=== PATIENT | female | born 1970 | race Caucasian/White ===

== ENCOUNTER 2016-09-07 13:49 | Emergency (ER) | payer BC ==
[2016-09-07 14:23] VITALS: RESP 18
[2016-09-07] MEDS ORDERED: DICYCLOMINE 10 MG/ML 2 ML AMP IM STA (14:44)
[2016-09-07] MEDS ORDERED: KETOROLAC 30 MG/ML 1 ML VIAL IVP STA (14:44)
[2016-09-07] MEDS ORDERED: SODIUM CHLORIDE 0.9% 1,000 ML IV STA (14:44)
--- NOTE | 2016-09-07 14:48 | ED ---
Abdominal Pain HPI - General Chief Complaint: Abdominal Pain Stated Complaint: left side pain Time Seen by Provider: 09/07/16 14:26 Source: patient, RN notes reviewed, old records reviewed Mode of arrival: ambulatory Limitations: no limitations - History of Present Illness Initial Comments: 45-year-old [employer] chief complaint of acute onset of left lower quadrant abdominal pain and discomfort for the past 8 hours. Patient reports that it started out a small hurting pain however analysis seemed to spread over more of her abdomen. She reports that she's had no nausea or vomiting. She reports she did have normal bowel movement today. Patient states that she is currently on her menstrual cycle and originally thought this was related to cramps. She reports that she took a Midol with very little relief of pain. Patient states that she has no surgical history besides tubal ligation and breast augmentation. Patient denies any recent fever, chills, shortness of breath, chest pain, back pain, abdominal pain, nausea vomiting, numbness or tingling, dysuria or hematuria, constipation or diarrhea, headaches or visual changes, or any other current symptoms - Related Data Previous Rx's Medication Instructions Recorded Ciprofloxacin HCl [Cipro] 500 mg PO Q12HR #14 tablet 09/07/16 HYDROcodone/APAP 10-325MG [[place] 1 tab PO Q6H PRN #20 tab 09/07/16 10-325] Ketorolac [Toradol] 10 mg PO Q6HR #20 tab 09/07/16 Ondansetron Odt [Zofran Odt] 4 mg PO Q8HR PRN #12 tab 09/07/16 Tamsulosin [Flomax] 0.4 mg PO DAILY #10 cap 09/07/16 Allergies Allergy/AdvReac Type Severity Reaction Status Date / Time No Known Allergies Allergy Verified 09/07/16 14:49 Review of Systems ROS Statement: Those systems with pertinent positive or pertinent negative responses have been documented in the HPI. ROS Other: All systems not noted in ROS Statement are negative. Past Medical History Past Medical History: No Reported History History of Any Multi-Drug Resistant Organisms: None Reported Additional Past Surgical History / Comment(s): breast augmentation Past Psychological History: No Psychological Hx Reported Smoking Status: Current every day smoker Past Alcohol Use History: None Reported Past Drug Use History: None Reported General Exam Limitations: no limitations General appearance: alert, in no apparent distress Head exam: Present: atraumatic, normocephalic, normal inspection Eye exam: Present: normal appearance, PERRL, EOMI. Absent: scleral icterus, conjunctival injection, periorbital swelling ENT exam: Present: normal exam, mucous membranes moist Neck exam: Present: normal inspection. Absent: tenderness, meningismus, lymphadenopathy Respiratory exam: Present: normal lung sounds bilaterally. Absent: respiratory distress, wheezes, rales, rhonchi, stridor Cardiovascular Exam: Present: regular rate, normal rhythm, normal heart sounds. Absent: systolic murmur, diastolic murmur, rubs, gallop, clicks GI/Abdominal exam: Present: soft, tenderness (llq tenderness), normal bowel sounds. Absent: distended, guarding, rebound, rigid Extremities exam: Present: normal inspection, full ROM, normal capillary refill. Absent: tenderness, pedal edema, joint swelling, calf tenderness Back exam: Present: normal inspection Neurological exam: Present: alert, oriented X3, CN II-XII intact Psychiatric exam: Present: normal affect, normal mood Skin exam: Present: warm, dry, intact, normal color. Absent: rash Course Vital Signs 09/07/16 09/07/16 09/07/16 14:20 14:57 16:02 Temperature 98.2 F 97.4 F L 97.8 F Pulse Rate 81 72 88 Respiratory 18 18 18 Rate Blood Pressure 158/82 149/84 152/83 O2 Sat by Pulse 100 100 99 Oximetry Medical Decision Making - Medical Decision Making 45-year-old [employer] chief complaint of acute onset of left lower quadrant abdominal pain and discomfort for the past 8 hours. Patient reports that it started out a small hurting pain however analysis seemed to spread over more of her abdomen. She reports that she's had no nausea or vomiting. She reports she did have normal bowel movement today. Patient states that she is currently on her menstrual cycle and originally thought this was related to cramps. She reports that she took a Midol with very little relief of pain. Patient's lab work was reviewed and did have significant blood in the urine. Patient is currently on her menstrual cycle. Patient did have elevated leukocytosis. KUB x-ray was negative for any acute process. Patient CAT scan abdomen and pelvis showed evidence of left hydronephrosis with hydroureter. Also evidence of significant pre-portal edema around the hepatic system. Patient finding could be consistent with lymphatic changes or hepatitis. Patient's lab work was reviewed and negative for any other abnormal process including liver enzymes her kidney function. Patient will be discharged at this time with Toradol, Zofran, and [place], Flomax and antibiotic. Patient agrees to treatment plan will comply. We'll give a referral to primary care provider regards to the hepatic finding as well as urology for a kidney stone. - Lab Data Result diagrams: 09/07/16 14:50 09/07/16 14:50 Lab Results 09/07/16 09/07/16 09/07/16 Range/Units 14:50 14:50 14:50 WBC 13.9 H (3.8-10.6) k/uL RBC 4.15 (3.80-5.40) m/uL Hgb 13.7 (11.4-16.0) gm/dL Hct 40.3 (34.0-46.0) % MCV 97.2 (80.0-100.0) fL MCH 33.0 (25.0-35.0) pg MCHC 34.0 (31.0-37.0) g/dL RDW 12.3 (11.5-15.5) % Plt Count 295 (150-450) k/uL Neutrophils % 78 % Lymphocytes % 14 % Monocytes % 6 % Eosinophils % 1 % Basophils % 0 % Neutrophils # 10.9 H (1.3-7.7) k/uL Lymphocytes # 1.9 (1.0-4.8) k/uL Monocytes # 0.8 (0-1.0) k/uL Eosinophils # 0.1 (0-0.7) k/uL Basophils # 0.1 (0-0.2) k/uL Sodium 139 (137-145) mmol/L Potassium 4.2 (3.5-5.1) mmol/L Chloride 109 H (98-107) mmol/L Carbon Dioxide 22 (22-30) mmol/L Anion Gap 8 mmol/L BUN 13 (7-17) mg/dL Creatinine 1.00 (0.52-1.04) mg/dL Est GFR (MDRD) Af Amer >60 (>60 ml/min/1.73 sqM) Est GFR (MDRD) Non-Af >60 (>60 ml/min/1.73 sqM) Glucose 84 (74-99) mg/dL Calcium 10.0 (8.4-10.2) mg/dL Total Bilirubin 0.5 (0.2-1.3) mg/dL AST 38 H (14-36) U/L ALT 44 (9-52) U/L Alkaline Phosphatase 74 (38-126) U/L Total Protein 6.9 (6.3-8.2) g/dL Albumin 4.4 (3.5-5.0) g/dL Amylase 42 (30-110) U/L Lipase 46 (23-300) U/L Urine Color Red Urine Appearance Cloudy H (Clear) Urine pH 5.5 (5.0-8.0) Ur Specific [place] 1.031 (1.001-1.035) Urine Protein 2+ H (Negative) Urine Glucose (UA) Negative (Negative) Urine Ketones Trace H (Negative) Urine Blood Large H (Negative) Urine Nitrite Negative (Negative) Urine Bilirubin Negative (Negative) Urine Urobilinogen 4.0 (<2.0) mg/dL Ur Leukocyte Esterase Trace H (Negative) Urine RBC >182 H (0-5) /hpf Urine WBC 15 H (0-5) /hpf Ur Squamous Epith Cells 5 H (0-4) /hpf Calcium Oxalate Crystal Few H (None) /hpf Urine Mucus Many H (None) /hpf - Radiology Data Radiology results: report reviewed Left-sided hydronephrosis and hydroureter with probably a 5 mm obstructing stone in the left ureter. Mild free fluid in the cul-de-sac. There is diffuse. Portable edema throughout the liver that is nonspecific but can be associated with hepatitis or obstructive lymphatics. I see no sign of congestive heart failure. There is subsegmental atelectasis in the lung bases. Disposition Clinical Impression: Left ureteral stone, Disorder of hepatic portal vein Disposition: HOME SELF-CARE Condition: Good Instructions: Ureteral Stones (ED) Additional Instructions: Patient is to take all medications as prescribed. Follow-up out patiently with primary care provider regards to hepatic finding. Take medications as directed. Return to the emergency department if any alarming signs or symptoms occur. Also recommending following up with urologist regards to the ureteral stone. Prescriptions: Ciprofloxacin HCl [Cipro] 500 mg PO Q12HR #14 tablet HYDROcodone/APAP 10-325MG [[place] 10-325] 1 tab PO Q6H PRN #20 tab PRN Reason: Pain Ketorolac [Toradol] 10 mg PO Q6HR #20 tab Ondansetron Odt [Zofran Odt] 4 mg PO Q8HR PRN #12 tab PRN Reason: Nausea Tamsulosin [Flomax] 0.4 mg PO DAILY #10 cap Referrals: Iván Chapman MD [STAFF PHYSICIAN] - 1-2 days Naren Cleveland MD [STAFF PHYSICIAN] - 1-2 days Time of Disposition: 17:35
--- NOTE | 2016-09-07 15:15 | XR ---
EXAMINATION TYPE: XR KUB DATE OF EXAM: 09/07/2016 COMPARISON: NONE HISTORY: Left flank pain TECHNIQUE: One view abdominal series FINDINGS: The osseous structures are intact. The bowel gas pattern is nonspecific. Lung bases are clear. 2 mm calcification overlying the sacrum. IMPRESSION: 1. Nonspecific abdomen. There is a 2 mm nonspecific calcification overlying the sacrum. Correlate wi th noncontrast CT if there is concern for ureteral calculus.
[2016-09-07 15:17] LABS: Basophils # (A) 0.1 k/uL (0-0.2); Basophils % (A) 0 %; CH 32.5; CHCM 33.6; Eosinophils # (A) 0.1 k/uL (0-0.7); Eosinophils % (A) 1 %; HCT 40.3 % (34.0-46.0); HGB 13.7 gm/dL (11.4-16.0); Luc # (Auto) 0.13; Luc % (Auto) 1; Lymphocytes # (A) 1.9 k/uL (1.0-4.8); Lymphocytes % (A) 14 %; MCV 97.2 fL (80.0-100.0); Mean Platelet Volume 7.2; Monocytes # (A) 0.8 k/uL (0-1.0); Monocytes % (A) 6 %; Neutrophils # (A) 10.9 k/uL (1.3-7.7); Neutrophils % (A) 78 %; RBC 4.15 m/uL (3.80-5.40); RDW 12.3 % (11.5-15.5); WBC 13.9 k/uL (3.8-10.6); WBC (Perox) 14.56
[2016-09-07 15:22] LABS: Appearance,Urine Cloudy (Clear); Bilirubin,Urine Negative (Negative); Calcium Oxalate Crystals,Urine Few /hpf; Glucose,Urine (UA) Negative (Negative); Ketones,Urine Trace (Negative); Leukocyte Esterase,Urine Trace (Negative); Mucus,Urine Many /hpf; Nitrite,Urine Negative (Negative); PH, Urine 5.5 (5.0-8.0); Particle Count 13918; Protein,Urine 2+ (Negative); RBC,Urine >182 /hpf (0-5); Specific Gravity,Urine 1.031 (1.001-1.035); Squamous Epithelial Cell,Urine 5 /hpf (0-4); UA Billing (MACRO vs. MICRO) MICRO; WBC,Urine 15 /hpf (0-5)
[2016-09-07 15:26] LABS: ALT 44 U/L (9-52); AST 38 U/L (14-36); Alkaline Phosphatase 74 U/L (38-126); Amylase 42 U/L (30-110); Anion Gap 8 mmol/L; Blood Urea Nitrogen 13 mg/dL (7-17); Carbon Dioxide 22 mmol/L (22-30); Chloride 109 mmol/L (98-107); Glucose 84 mg/dL (74-99); Non-African American GFR(MDRD) >60 (>60 ml/min/1.73 sqM); Potassium 4.2 mmol/L (3.5-5.1); Sodium 139 mmol/L (137-145); Total Bilirubin 0.5 mg/dL (0.2-1.3); Total Protein 6.9 g/dL (6.3-8.2)
[2016-09-07] MEDS ORDERED: RX INFO: IV CONTRAST WAS GIVEN 1 EACH MISC MISCELLANE PRN (15:46)
[2016-09-07] MEDS ORDERED: HYDROmorphone 1 MG/ML 1 ML SYRINGE IVP STA (15:50)
[2016-09-07] MEDS ORDERED: ONDANSETRON 4 MG/2 ML VIAL IVP STA (15:50)
[2016-09-07 16:02] VITALS: TEMP 97.8
--- NOTE | 2016-09-07 16:43 | CT ---
EXAMINATION TYPE: CT abdomen pelvis w con DATE OF EXAM: 09/07/2016 COMPARISON: NONE HISTORY: Abdominal pain CT DLP: mGycm Automated exposure control for dose reduction was used. TECHNIQUE: Helical acquisition of images was performed from the lung bases through the pelvis. CONTRAST: Omnipaque 100 mL. FINDINGS: There is mild linear density at the posterior lung bases. There is no pleural effusion. There is periportal edema throughout the liver. Bile ducts are not dilated. Gallbladder has normal si ze. There is no sign of a pancreatic mass. Spleen appears normal. There is no adrenal mass. There is mild left-sided hydronephrosis. The delayed images show no contras t in the left renal collecting system. There is mild enlargement of the left kidney. Right kidney jose roberto ws normal contrast opacification and contrast excretion. Bilateral breast implants are noted. Bony st ructures are intact. There is no retroperitoneal adenopathy. There is no ascites or free air. There is a small amount of f ree fluid in the pelvis. The bony structures are intact. Uterus is anteverted. I see no pelvic mass. Appendix is not definitely seen. There is no sign of appendicitis. I see no intestinal wall thickenin g. There is no sign of bowel obstruction. There is probably a 5 mm calculus in the distal left ureter . There is left-sided hydroureter. IMPRESSION: THERE IS LEFT-SIDED HYDRONEPHROSIS AND HYDROURETER WITH PROBABLY A 5 MM OBSTRUCTING STONE IN THE DIST AL LEFT URETER. MILD FREE FLUID IN THE CUL-DE-SAC. THERE IS DIFFUSE PERIPORTAL EDEMA THROUGHOUT THE LIVER THAT IS NONSPECIFIC BUT CAN BE ASSOCIATED WITH HEPATITIS OR OBSTRUCTED LYMPHATICS.. I SEE NO SIGN OF CONGESTIVE HEART FAILURE. THERE IS MILD SUBSEG MENTAL ATELECTASIS AT THE LUNG BASES.
[2016-09-07 17:58] VITALS: BP 114/73; PULSE 70
== END 2016-09-07 17:58 | disposition home or self-care (01) ==
LOC: EC 13:49
DX: N20.1 Calculus of ureter (principal); K76.9 Liver disease, unspecified; F17.200 Nicotine dependence, unspecified, uncomplicated
CPT/HCPCS: 36415; 80053; 82150; 83690; 85025; 81001; 74000; 74177; 99285; 96372; 96374; 96375 ×2; 96361; J0500; J2405; J1885; J1170; Q9967

== ENCOUNTER 2024-08-26 06:51 | Inpatient (IN) | payer BC ==
--- NOTE | 2024-08-26 07:42 | ED ---
General Adult HPI - General Chief complaint: Overdose Stated complaint: Possible overdose Time Seen by Provider: 08/26/24 07:13 Source: patient Mode of arrival: EMS Limitations: no limitations - History of Present Illness Initial comments: Dictation was produced using [employer] dictation software. please excuse any grammatical, word or spelling errors. Chief Complaint: 53-year-old depressed female presents with suicidal behavior History of Present Illness: Patient 53-year-old female has been depressed about her life. States she drank half a pint of liquor. She intended on holding on medications. Patient provides vague history where she thinks she took maybe 6-8 Motrin pills and some other pills that she is not sure of. She states that the time of ingestion was 5:30 AM. EMS wanted to bring patient to the ER states that patient took 50 mg of Toradol. Patient denies any physical complaints. The ROS documented in this emergency department record has been reviewed and confirmed by me. Those systems with pertinent positive or negative responses have been documented in the HPI. All other systems are other negative and/or noncontributory. - Related Data Previous Rx's Medication Instructions Recorded Ciprofloxacin HCl [Cipro] 500 mg PO Q12HR #14 tablet 09/07/16 HYDROcodone/APAP 10-325MG [[place] 1 tab PO Q6H PRN #20 tab 09/07/16 10-325] Ketorolac [Toradol] 10 mg PO Q6HR #20 tab 09/07/16 Ondansetron Odt [Zofran Odt] 4 mg PO Q8HR PRN #12 tab 09/07/16 Tamsulosin [Flomax] 0.4 mg PO DAILY #10 cap 09/07/16 Allergies Allergy/AdvReac Type Severity Reaction Status Date / Time No Known Allergies Allergy Verified 08/26/24 07:35 Review of Systems ROS Statement: Those systems with pertinent positive or pertinent negative responses have been documented in the HPI. ROS Other: All systems not noted in ROS Statement are negative. Past Medical History Past Medical History: No Reported History History of Any Multi-Drug Resistant Organisms: None Reported Additional Past Surgical History / Comment(s): breast augmentation Past Psychological History: No Psychological Hx Reported Past Alcohol Use History: None Reported Past Drug Use History: None Reported General Exam - General Exam Comments Initial Comments: PHYSICAL EXAM: General Impression: Alert and oriented x3, not in acute distress HEENT: Normocephalic atraumatic, extra-ocular movements intact, pupils equal and reactive to light bilaterally, mucous membranes moist. Cardiovascular: Heart regular rate and rhythm Chest: Able to complete full sentences, no retractions, no tachypnea Abdomen: abdomen soft, non-tender, non-distended, no organomegaly Musculoskeletal: Pulses present and equal in all extremities, no peripheral edema Motor: no focal deficits noted Neurological: CN II-XII grossly intact, no focal motor or sensory deficits noted Skin: Intact with no visualized rashes Psych: Normal affect and mood Limitations: no limitations Course Vital Signs 08/26/24 08/26/24 07:28 07:46 Temperature 97.8 F 97.8 F Pulse Rate 77 62 Respiratory 17 16 Rate Blood Pressure 114/76 96/60 O2 Sat by Pulse 97 96 Oximetry EKG Findings - EKG Comments: EKG Findings:: My EKG interpretation: Ventricular rate 66, sinus rhythm, [place] interval 159, cures 91, QTc 378. No [place] prolongation, no QTC prolongation, no ST or T-wave changes noted. Overall, this EKG is unremarkable Medical Decision Making - Medical Decision Making Was pt. sent in by a medical professional or institution (, PA, ALUMINA REFINERY OPERATOR, urgent care, hospital, or long-term...) When possible be specific @ -No Did you speak to anyone other than the patient for history (EMS, parent, family, police, friend...)? What history was obtained from this source @ -No Did you review nursing and triage notes (agree or disagree)? Why? @ -I reviewed and agree with nursing and triage notes Were old charts reviewed (outside hosp., previous admission, EMS record, old EKG, old radiological studies, urgent care reports/EKG's, long-term records)? Report findings @ -No old charts were reviewed Differential Diagnosis (chest pain, altered mental status, abdominal pain women, abdominal pain men, vaginal bleeding, musculoskeletal, weakness, fever, dyspnea, syncope, headache, dizziness, GI bleed, back pain, seizure, CVA, palpatations, mental health)? @ -Differential Mental Health: Depression, anxiety, bipolar, psychosis, schizophrenia, borderline personality, situational depression, adjustment disorder, behavioral disorder, brain tumor, malingering, substance abuse, encephalopathy, medication reaction, dementia, hypothyroidism, degenerative neurologic disorder, lupus.... This is not meant to be all-inclusive list EKG interpreted by me (3pts min.). @ -See above X-rays interpreted by me (1pt min.). @ -None done CT interpreted by me (1pt min.). @ -None done U/S interpreted by me (1pt. min.). @ -None done What testing was considered but not performed or refused? (CT, X-rays, U/S, labs)? Why? @ -None What meds were considered but not given or refused? Why? @ -None Was smoking cessation discussed for >3mins.? @ -No Were there social determinants of health that impacted care today? How? (Ho melessness, low income, unemployed, alcoholism, drug addiction, transportation, low edu. Level, literacy, decrease access to med. care, retirement, rehab)? @ -No Was there de-escalation of care discussed even if they declined (Discuss DNR or withdrawal of care, Hospice)? DNR status @ -No What co-morbidities impacted this encounter? (DM, HTN, Smoking, COPD, CAD, Cancer, CVA, ARF, Chemo, Hep., AIDS, mental health diagnosis, sleep apnea, morbid obesity)? @ -None Was patient admitted / discharged? Hospital course, mention meds given and route, prescriptions, significant lab abnormalities, going to OR and other pertinent info. @ -53-year-old female presents with depression, suicidal behavior. States that she overdosed on some NSAIDs along with alcohol. Vital signs stable. Did you discuss the management of the patient with other professionals (professionals i.e. , PA, ALUMINA REFINERY OPERATOR, lab, RT, psych nurse, social media project manager, olericulture teacher, teacher, state wildlife officer, cyanide case hardener)? Give summary @ -Patient evaluated by EPS will be admitted to inpatient psych Was critical care preformed (if so, how long)? @ -No Undiagnosed new problem with uncertain prognosis? @ -No Drug Therapy requiring intensive monitoring for toxicity (Heparin, Nitro, Insulin, Cardizem)? @ -No Were any procedures done? @ -No Diagnosis/symptom? Acute, or Chronic, or Acute on Chronic? Uncomplicated (without systemic symptoms) or Complicated (systemic symptoms)? @ -Suicidal attempt Side effects of treatment? @ -No Exacerbation, Progression, or Severe Exacerbation? @ -No Poses a threat to life or bodily function? How? (Chest pain, [place], [place], pneumonia, PE, COPD, DKA, ARF, appy, cholecystitis, CVA, Diverticulitis, Homicidal, [place] icidal, threat to staff... and all critical care pts) @ -yes - Lab Data Result diagrams: 08/26/24 08:06 08/26/24 08:06 Lab Results 08/26/24 08/26/24 08/26/24 Range/Units 06:58 06:58 08:06 WBC 9.48 (4.50-10.00) 10*3/uL RBC 4.50 (4.10-5.20) 10*6/uL Hgb 15.3 H (12.0-15.0) g/dL Hct 43.5 (37.2-46.3) % MCV 96.7 (80.0-97.0) fL MCH 34.0 H (27.0-32.0) pg MCHC 35.2 (32.0-37.0) g/dL Plt Count 274 (140-440) 10*3/uL MPV 9.3 L (9.5-12.2) fL Immature Gran % (Auto) 0.3 % Neutrophils % 68.4 % Lymphocytes % 23.8 % Monocytes % 6.5 % Eosinophils % 0.4 % Basophils % 0.6 % Immature Gran # 0.03 (0.00-0.04) 10*3/uL Neutrophils # 6.47 (1.80-7.70) 10*3/uL Lymphocytes # 2.26 (0.90-5.00) 10*3/uL Monocytes # 0.62 (0.20-1.00) 10*3/uL Eosinophils # 0.04 (0.04-0.35) 10*3/uL Basophils # 0.06 (0.00-0.10) 10*3/uL Sodium (137-145) mmol/L Potassium (3.5-5.1) mmol/L Chloride (98-107) mmol/L Carbon Dioxide (22-30) mmol/L Anion Gap mmol/L BUN (7-17) mg/dL Creatinine (0.52-1.04) mg/dL Est GFR (CKD-EPI)AfAm (>60 ml/min/1.73 sqM) Est GFR (CKD-EPI)NonAf (>60 ml/min/1.73 sqM) Glucose (74-99) mg/dL Calcium (8.4-10.2) mg/dL Total Bilirubin (0.2-1.3) mg/dL AST (14-36) U/L ALT (4-34) U/L Alkaline Phosphatase (38-126) U/L Total Protein (6.3-8.2) g/dL Albumin (3.5-5.0) g/dL Urine HCG, Qual Not Detected (Not Detectd) Salicylates mg/dL Urine Opiates Screen Detected H (NotDetected) Ur Oxycodone Screen Not Detected (NotDetected) Urine Methadone Screen Not Detected (NotDetected) Acetaminophen ug/mL Ur Barbiturates Screen Not Detected (NotDetected) U Tricyclic Antidepress Not Detected (NotDetected) Ur Phencyclidine Scrn Not Detected (NotDetected) Ur Amphetamines Screen Not Detected (NotDetected) U Methamphetamines Scrn Not Detected (NotDetected) U Benzodiazepines Scrn Not Detected (NotDetected) Urine Cocaine Screen Not Detected (NotDetected) U Marijuana (THC) Screen Not Detected (NotDetected) Serum Alcohol mg/dL 08/26/24 08/26/24 Range/Units 08:06 09:33 WBC (4.50-10.00) 10*3/uL RBC (4.10-5.20) 10*6/uL Hgb (12.0-15.0) g/dL Hct (37.2-46.3) % MCV (80.0-97.0) fL MCH (27.0-32.0) pg MCHC (32.0-37.0) g/dL Plt Count (140-440) 10*3/uL MPV (9.5-12.2) fL Immature Gran % (Auto) % Neutrophils % % Lymphocytes % % Monocytes % % Eosinophils % % Basophils % % Immature Gran # (0.00-0.04) 10*3/uL Neutrophils # (1.80-7.70) 10*3/uL Lymphocytes # (0.90-5.00) 10*3/uL Monocytes # (0.20-1.00) 10*3/uL Eosinophils # (0.04-0.35) 10*3/uL Basophils # (0.00-0.10) 10*3/uL Sodium 143 (137-145) mmol/L Potassium 3.5 (3.5-5.1) mmol/L Chloride 107 (98-107) mmol/L Carbon Dioxide 25 (22-30) mmol/L Anion Gap 11 mmol/L BUN 10 (7-17) mg/dL Creatinine 0.76 (0.52-1.04) mg/dL Est GFR (CKD-EPI)AfAm >90 (>60 ml/min/1.73 sqM) Est GFR (CKD-EPI)NonAf >90 (>60 ml/min/1.73 sqM) Glucose 89 (74-99) mg/dL Calcium 10.6 H (8.4-10.2) mg/dL Total Bilirubin 0.4 (0.2-1.3) mg/dL AST 20 (14-36) U/L ALT 13 (4-34) U/L Alkaline Phosphatase 75 (38-126) U/L Total Protein 7.3 (6.3-8.2) g/dL Albumin 4.6 (3.5-5.0) g/dL Urine HCG, Qual (Not Detectd) Salicylates <1.0 mg/dL Urine Opiates Screen (NotDetected) Ur Oxycodone Screen (NotDetected) Urine Methadone Screen (NotDetected) Acetaminophen 11.5 <10.0 ug/mL Ur Barbiturates Screen (NotDetected) U Tricyclic Antidepress (NotDetected) Ur Phencyclidine Scrn (NotDetected) Ur Amphetamines Screen (NotDetected) U Methamphetamines Scrn (NotDetected) U Benzodiazepines Scrn (NotDetected) Urine Cocaine Screen (NotDetected) U Marijuana (THC) Screen (NotDetected) Serum Alcohol 41 mg/dL Disposition Clinical Impression: Suicide attempt by multiple drug overdose Disposition: TRANSFER TO PSYCH HOSP/UNIT Condition: Fair Referrals: None,Stated [Primary Care Provider] - 1-2 days
[2024-08-26 08:11] LABS: Basophils # (A) 0.06 10*3/uL (0.00-0.10); Basophils % (A) 0.6 %; Eosinophils # (A) 0.04 10*3/uL (0.04-0.35); Eosinophils % (A) 0.4 %; HCT 43.5 % (37.2-46.3); HGB 15.3 g/dL (12.0-15.0); Lymphocytes # (A) 2.26 10*3/uL (0.90-5.00); Lymphocytes % (A) 23.8 %; MCH 34.0 pg (27.0-32.0); MCHC 35.2 g/dL (32.0-37.0); MCV 96.7 fL (80.0-97.0); Monocytes # (A) 0.62 10*3/uL (0.20-1.00); Monocytes % (A) 6.5 %; Neutrophils # (A) 6.47 10*3/uL (1.80-7.70); Neutrophils % (A) 68.4 %; Platelet Count 274 10*3/uL (140-440); RBC 4.50 10*6/uL (4.10-5.20); RDW 12.8 % (11.5-14.5); WBC 9.48 10*3/uL (4.50-10.00)
[2024-08-26 08:11] LABS: Barbiturate Screen,Urine Not Detected (NotDetected); Benzodiazepines Screen,Urine Not Detected (NotDetected); Opiate Screen,Urine Detected (NotDetected); Oxycodone Screen, Urine Not Detected (NotDetected); Phencyclidine Screen,Urine Not Detected (NotDetected); Tricyclic Antidepressant,Urine Not Detected (NotDetected); Urn Cannabinoid Scrn Not Detected (NotDetected)
[2024-08-26 08:30] LABS: ALT 13 U/L (4-34); AST 20 U/L (14-36); Acetaminophen 11.5 ug/mL; African American GFR (CKD) >90 (>60 ml/min/1.73 sqM); Albumin 4.6 g/dL (3.5-5.0); Alkaline Phosphatase 75 U/L (38-126); Anion Gap 11 mmol/L; Blood Urea Nitrogen 10 mg/dL (7-17); Calcium 10.6 mg/dL (8.4-10.2); Carbon Dioxide 25 mmol/L (22-30); Chloride 107 mmol/L (98-107); Glucose 89 mg/dL (74-99); Non-African American GFR(CKD) >90 (>60 ml/min/1.73 sqM); Potassium 3.5 mmol/L (3.5-5.1); Salicylate <1.0 mg/dL; Sodium 143 mmol/L (137-145); Total Protein 7.3 g/dL (6.3-8.2)
[2024-08-26 13:48] LABS: RSV Not Detected (Not Detectd)
[2024-08-26] MEDS ORDERED: MAG HYDROX/AL HYDROX/SIMETH 355 ML BOTTLE PO PRN (14:42)
[2024-08-26] MEDS ORDERED: IBUPROFEN 600 MG TAB PO PRN (14:42)
[2024-08-26] MEDS ORDERED: ACETAMINOPHEN TAB 325 MG TAB PO PRN (14:42)
[2024-08-26] MEDS ORDERED: LORazepam 1 MG TAB PO PRN ×2 (14:42)
[2024-08-26] MEDS ORDERED: HALOPERIDOL LACTATE 5 MG/ML 1 ML VIAL IM PRN (14:42)
[2024-08-26] MEDS: NICOTINE 21MG/24HR PATCH TRANSDERM SCH (15:57)
[2024-08-27 07:46] LABS: ALT 12 U/L (4-34); AST 19 U/L (14-36); African American GFR (CKD) >90 (>60 ml/min/1.73 sqM); Albumin 4.6 g/dL (3.5-5.0); Alkaline Phosphatase 57 U/L (38-126); Anion Gap 8 mmol/L; Blood Urea Nitrogen 15 mg/dL (7-17); Calcium 10.8 mg/dL (8.4-10.2); Carbon Dioxide 23 mmol/L (22-30); Chloride 107 mmol/L (98-107); Glucose 89 mg/dL (74-99); Non-African American GFR(CKD) 88 (>60 ml/min/1.73 sqM); Potassium 4.4 mmol/L (3.5-5.1); Sodium 138 mmol/L (137-145); Total Protein 7.0 g/dL (6.3-8.2)
--- NOTE | 2024-08-27 08:18 | P.HP ---
Psychiatric H&P - . History & Physical: Allergies Allergy/AdvReac Type Severity Reaction Status Date / Time No Known Allergies Allergy Verified 08/26/24 14:13 Vital Signs Temp 97.5 F L 08/27/24 08:02 Pulse 65 08/27/24 08:02 Resp 16 08/27/24 08:02 BP 112/77 08/27/24 08:02 Pulse Ox 98 08/27/24 08:02 FiO2 Intake & Output 08/26/24 08/27/24 08/27/24 18:59 06:59 18:59 Weight 40.052 kg Laboratory Last Values WBC 9.48 10*3/uL (4.50-10.00) 08/26/24 08:06 RBC 4.50 10*6/uL (4.10-5.20) 08/26/24 08:06 Hgb 15.3 g/dL (12.0-15.0) H 08/26/24 08:06 Hct 43.5 % (37.2-46.3) 08/26/24 08:06 MCV 96.7 fL (80.0-97.0) 08/26/24 08:06 MCH 34.0 pg (27.0-32.0) H 08/26/24 08:06 MCHC 35.2 g/dL (32.0-37.0) 08/26/24 08:06 Plt Count 274 10*3/uL (140-440) 08/26/24 08:06 MPV 9.3 fL (9.5-12.2) L 08/26/24 08:06 Immature Gran % (Auto) 0.3 % 08/26/24 08:06 Neutrophils % 68.4 % 08/26/24 08:06 Lymphocytes % 23.8 % 08/26/24 08:06 Monocytes % 6.5 % 08/26/24 08:06 Eosinophils % 0.4 % 08/26/24 08:06 Basophils % 0.6 % 08/26/24 08:06 Immature Gran # 0.03 10*3/uL (0.00-0.04) 08/26/24 08:06 Neutrophils # 6.47 10*3/uL (1.80-7.70) 08/26/24 08:06 Lymphocytes # 2.26 10*3/uL (0.90-5.00) 08/26/24 08:06 Monocytes # 0.62 10*3/uL (0.20-1.00) 08/26/24 08:06 Eosinophils # 0.04 10*3/uL (0.04-0.35) 08/26/24 08:06 Basophils # 0.06 10*3/uL (0.00-0.10) 08/26/24 08:06 Sodium 138 mmol/L (137-145) 08/27/24 07:02 Potassium 4.4 mmol/L (3.5-5.1) 08/27/24 07:02 Chloride 107 mmol/L (98-107) 08/27/24 07:02 Carbon Dioxide 23 mmol/L (22-30) 08/27/24 07:02 Anion Gap 8 mmol/L 08/27/24 07:02 BUN 15 mg/dL (7-17) 08/27/24 07:02 Creatinine 0.79 mg/dL (0.52-1.04) 08/27/24 07:02 Est GFR (CKD-EPI)AfAm >90 (>60 ml/min/1.73 sqM) 08/27/24 07:02 Est GFR (CKD-EPI)NonAf 88 (>60 ml/min/1.73 sqM) 08/27/24 07:02 Glucose 89 mg/dL (74-99) 08/27/24 07:02 Calcium 10.8 mg/dL (8.4-10.2) H 08/27/24 07:02 Total Bilirubin 0.5 mg/dL (0.2-1.3) 08/27/24 07:02 AST 19 U/L (14-36) 08/27/24 07:02 ALT 12 U/L (4-34) 08/27/24 07:02 Alkaline Phosphatase 57 U/L (38-126) 08/27/24 07:02 Total Protein 7.0 g/dL (6.3-8.2) 08/27/24 07:02 Albumin 4.6 g/dL (3.5-5.0) 08/27/24 07:02 Urine HCG, Qual Not Detected (Not Detectd) 08/26/24 06:58 Salicylates <1.0 mg/dL 08/26/24 08:06 Urine Opiates Screen Detected (NotDetected) H 08/26/24 06:58 Ur Oxycodone Screen Not Detected (NotDetected) 08/26/24 06:58 Urine Methadone Screen Not Detected (NotDetected) 08/26/24 06:58 Acetaminophen <10.0 ug/mL 08/26/24 09:33 Ur Barbiturates Screen Not Detected (NotDetected) 08/26/24 06:58 U Tricyclic Antidepress Not Detected (NotDetected) 08/26/24 06:58 Ur Phencyclidine Scrn Not Detected (NotDetected) 08/26/24 06:58 Ur Amphetamines Screen Not Detected (NotDetected) 08/26/24 06:58 U Methamphetamines Scrn Not Detected (NotDetected) 08/26/24 06:58 U Benzodiazepines Scrn Not Detected (NotDetected) 08/26/24 06:58 Urine Cocaine Screen Not Detected (NotDetected) 08/26/24 06:58 U Marijuana (THC) Screen Not Detected (NotDetected) 08/26/24 06:58 Serum Alcohol 41 mg/dL 08/26/24 08:06 Influenza Type A (PCR) Not Detected (Not Detectd) 08/26/24 13:00 Influenza Type B (PCR) Not Detected (Not Detectd) 08/26/24 13:00 RSV (PCR) Not Detected (Not Detectd) 08/26/24 13:00 SARS-CoV-2 (PCR) Not Detected (Not Detectd) 08/26/24 13:00 08/27/24 08:05 IDENTIFYING DATA: Patient is a 53-year-old female currently living with her HPI: The patient presented to the hospital under CERT stating that she was hearing things and seeing things. While in the hospital she had noted that she had overdosed on medications. Interviewing the patient was limited due to the patient's psychotic presentation and thought blocking. She notes the intent was trying to kill herself. Tox screen was positive for alcohol blood alcohol was 0.041 and UDS was positive for opiates. The patient notes that she had been going through a slump. She notes that she wanted her to put cameras in the house because people were coming in. She notes that her in someway was controlling the content on the television set. She had difficulty explaining this. She notes that she is severely depressed and anxious. She notes that she has been sleeping too much and has no energy, appetite or concentration. She notes that she is scared and has been crying. She notes guilt and shame. She denies any homicidal thoughts and notes that there are firearms in the house and does not know whether they are locked or unlocked. Collateral: Patient gave me permission to speak to her and her son. An attempt was made to call Justin first her son [phone] however unsuccessful. An attempt was made to call her Omid [phone] however unsuccessful. PAST PSYCHIATRIC HISTORY: The patient denied any past mental health issues but notes that she had a similar episode after her sister of seeing things.. Patient denies being on any psychiatric medications. Patient denies any previous psychiatric hospitalizations. Patient denies any psychiatric outpatient follow-up. Patient denies any history of suicide attempts in the past. PMH: as per ER note ALLERGIES: as per EMR CHEMICAL DEPENDENCY HISTORY: as per HPI FAMILY PSYCHIATRIC/SUBSTANCE USE HISTORY: Denies SOCIAL HISTORY: Patient was born and raised in [place] and lives with her . MENTAL STATUS EXAM: General Appearance: Patient appears to be older than her stated age is alert, scared and hesitant. Patient appears to have fair hygiene and grooming. Behavior: Patient is tense and guarded. She Hesitating and Looked at She Was Responding to Internal Stimuli. The patient was tearful during the interview Speech: Patient's speech is nonfluent and nonpressured. Mood/Affect: Patient reports their mood is depressed and scared, affect is congruent and constricted. Suicidality/Homicidality: Patient denies having any homicidal ideation intent or plan. Noted having tried to kill herself she notes that she does not have any suicidal thoughts currently Perceptions: Patient is having visual hallucinations and notes auditory hallucinations Though content/process: Paranoid and thought blocking Memory and concentration: AOX3, grossly intact for the purposes of this session. Judgment and insight: Poor/Poor STRENGTHS/WEAKNESSES: strength is that patient is resilient. Weakness is that patient has poor judgment and is impulsive INTELLECT: Average Diagnosis: Psychosis NOS Assessment: 53-year-old female presenting to the hospital initially for psychotic symptoms however admitted to trying to kill herself with pills and alcohol. The patient's presentation is extremely bizarre with her thought blocking it is difficult to get a good interview. She is definitely having psychosis at this time and she had mentioned a past history of similar stress incidents specifically with her sister dying where she experienced a similar event. Their questions whether the patient has depression with psychotic features. Additionally, we cannot rule out due to not knowing the patient's past history of psychiatric problems possible organic causes including possible stroke. She did relay that she had been through a stressful period as well as her family. Another option is this is late onset schizophrenia. At this point it is felt that the patient is a risk to herself and this is the least restrictive level of care. PLAN: -Patient is admitted under involuntary status to MHU for stabilization of psychiatric symptoms and safety. Patient has not signed adult voluntary form and medication consent and is placed in patient's chart. A second certification was completed and along with petition will be filed for court. -Medications : Start Zyprexa Zydis 5 mg take 1 tablet by mouth twice daily for psychosis -Ativan and Haldol PRN for agitation/aggression -Started thiamine, MVM for etoh use -CIWA protocol with Ativan PRN for ETOH withdrawal. -Patient was informed of the risks, benefits and side effects of the medication and patient verbally consented to taking the medications. Patient signed med consent form and was placed in chart. -Internal Medicine consult to perform medical evaluation and physical. -NRT -nicotine patch -SW on board for discharge planning. Encourage patient to participate in groups to work on coping skills. Will await deferral and court date. 08/27/24 08:07
[2024-08-27] MEDS: OLANZapine ODT 5 MG TAB PO SCH (08:48)
[2024-08-27 12:18] VITALS: BMI 18.4
--- NOTE | 2024-08-28 13:06 | P.PN ---
Progress Note - Text Progress Note Date: 08/28/24 Interval History: Patient was seen in bed and was directable and agreeable to speak with data analyst report writer in the office. Patient reports feeling well however does mention difficulty staying asleep overnight. Patient displayed disorganization in her thoughts, paranoia, stating that she wants to leave however does not want to return home but due to her disorganization was difficult elaborating on this. She states eating okay. Reports constipation and was encouraged to take as needed milk of magnesia today. Patient deferred today. At this time patient denies any suicidal or homicidal ideations, intent or plan. Patient denies any auditory, visual hallucinations. Patient denies any side effects from the medications and has been compliant with meds. Mental Status Exam: General Appearance: Patient appears to be slightly older than stated age is alert, directable, and cooperative. Behavior: Patient is calmly seated without any agitated behavior. Speech: Patient's speech is fluent and nonpressured. Mood/Affect: Mood is improving mildly, affect is congruent and constricted. Suicidality/Homicidality: Patient denies having any suicidal or homicidal ideation intent or plan. Perceptions: Patient denies any visual hallucinations and denies any auditory hallucinations Though content/process: There is evidence of disorganization, paranoia Memory and concentration: AOX3, grossly intact for the purposes of this session Judgment and insight: Improving mildly Assessment Psychosis unspecified Nicotine dependence Plan: -Patient continues to meet criteria for inpatient psychiatric admission for symptom stabilization and safety. Patient has not signed adult voluntary form and medication consent and was placed in patient's chart. -Medications: Increase Zyprexa Zydis to 5 mg daily and 10 mg at bedtime for psychosis -When necessary Ativan and Haldol for agitation/aggression. -Labs: Reviewed, TSH elevated however free T4 was ordered to be completed today -NRT - nicotine patch -SW on board for discharge planning. Encouraged the patient to participate in milieu. Currently awaiting deferral with civil rights attorney and court date.
[2024-08-28] MEDS: OLANZapine ODT 10 MG TAB PO SCH (20:26)
[2024-08-29] MEDS: OLANZapine ODT 5 MG TAB PO SCH (08:14)
[2024-08-30] MEDS: MAGNESIUM HYDROXIDE 2,400 MG/30 ML CUP PO PRN (10:46)
--- NOTE | 2024-08-30 18:25 | P.MDCNMH ---
History of Present Illness H&P Date: 08/30/24 Chief Complaint: medical evaluation 53-year-old woman with a medical history of nicotine dependence, seizure disorder presented for mental health evaluation. Medicine was consulted for medical evaluation. Patient has no active complaints at this time and denies any chronic medical conditions. She does not take any medications and denies following with a primary care physician. Review of systems is largely negative. Patient is hemodynamically stable. CBC is mostly unremarkable. Complete metabolic panel is significant for calcium of 10.8. TSH is 25.3, free T4 is 0.84. Beta-hCG is negative. Urine tox urine is positive for opiates, otherwise negative. Alcohol level is 41. Influenza A, B, RSV, COVID were negative. EKG shows sinus arrhythmia with right axis deviation, peaked P wave. All Systems reviewed and pertinent positives and negatives noted in HPI, all other symptoms are negative Gen: In NAD, non-toxic HEENT: normocephalic, atraumatic, hearing acuity is intant, mucous membranes moist CVS: perfusing all extremities well, no pitting edema, Respiratory: symmetric chest expansion, no accessory muscle use, GI: soft, NTTP, ND, : no suprapubic tenderness, no CVA tenderness MSK/Derm: no rashes, cyanosis Neuro: CN II-XII intact, no motor weakness, Psych: cooperative, euthymic mood, judgment and insight is intact Labs and imaging as above Assessment/plan: Hypercalcemia -Chest x-ray - Obtain PTH - Obtain vitamin D level Subclinical hypothyroidism - Outpatient follow-up in 6 weeks to determine need for initiation of levothyroxine Peaked P waves on EKG with right axis deviation Nicotine dependence - Suspicious for pulmonary disease, see chest x-ray as above - Smoking cessation counseling, will likely need referral to pulmonology for PFTs Thank you for this consult, please reach out with any further questions or concerns. Please discuss with on-call attending regarding any abnormal results from above Past Medical History Past Medical History: Seizure Disorder Additional Past Medical History / Comment(s): pt reports she had a seizure at age 14. History of Any Multi-Drug Resistant Organisms: None Reported Additional Past Surgical History / Comment(s): breast augmentation Past Psychological History: No Psychological Hx Reported Smoking Status: Current every day smoker Past Alcohol Use History: None Reported Past Drug Use History: None Reported Medications and Allergies Home Medications Medication Instructions Recorded Confirmed Type Nicotine 21Mg/24Hr Patch [Habitrol] 1 patch TRANSDERM DAILY 08/26/24 08/26/24 History Allergies Allergy/AdvReac Type Severity Reaction Status Date / Time No Known Allergies Allergy Verified 08/26/24 14:13 Physical Exam Osteopathic Statement: *. No significant issues noted on an osteopathic structural exam other than those noted in the History and Physical/Consult. Vitals: Vital Signs Temp Pulse Resp BP Pulse Ox 08/30/24 12:54 98.6 F 80 16 94/54 97 08/29/24 21:00 97.8 F 95 16 99/61 98 Intake and Output 08/30/24 08/30/24 08/30/24 06:59 14:59 22:59 Other: Weight 42.6 kg Cranial Nerve Examination - Cranial Nerves Cranial Nerve II- Optic: Intact Cranial Nerve III- Oculomotor: Intact Cranial Nerve IV- Trochlear: Intact Cranial Nerve V- Trigeminal: Intact Cranial Nerve - Abducens: Intact Cranial Nerve VII- Facial: Intact Cranial Nerve VIII- Auditory: Intact Cranial Nerve IX- Glossopharyngeal: Intact Cranial Nerve X- Vagus: Intact Cranial Nerve XI- Accessory: Intact Cranial Nerve XII- Hypoglossal: Intact Results CBC & Chem 7: 08/26/24 08:06 08/27/24 07:02
--- NOTE | 2024-08-30 21:18 | P.PN ---
Progress Note - Text Progress Note Date: 08/29/24 Interval History: Patient was directable and agreeable to speak with magazine writer but appears guarded on assessment. She states she feels she has been feeling tired and sleeping more than usual. She states she doesn't think the medications are needed and wants to stop them, but agrees to continue taking her medications for now. Her insight into her reasons for admissions appears to be poor. At this time patient denies any suicidal or homicidal ideation, intent or plan. Patient denies any auditory, visual hallucinations. Patient denies any side effects from the medications, other than feeling tired, and has been compliant with meds. Mental Status Exam: General Appearance: Patient appears to be slightly older than stated age, dressed in neat casual attire, hair combed in pony tail Behavior: Patient is calm without any agitated behavior. Speech: Patient's speech is fluent and nonpressured. Mood/Affect: Mood is improving mildly, affect is congruent and constricted. Suicidality/Homicidality: Patient denies having any suicidal or homicidal ideation intent or plan. Perceptions: Patient denies any visual hallucinations and denies any auditory hallucinations Though content/process: There is some evidence of disorganization, paranoia; appears guarded Memory and concentration: AOX3, grossly intact for the purposes of this session Judgment and insight: Improving mildly Assessment/Plan: -Continue current diagnosis. -Patient continues to meet criteria for inpatient psychiatric admission for symptom stabilization and safety. -Medications: Continue Zyprexa Zydis 5 mg daily and 10 mg at bedtime for psychosis, and monitor -When necessary Ativan and Haldol for agitation/aggression. -Encouraged the patient to participate in milieu.
--- NOTE | 2024-08-30 21:26 | P.PN ---
Progress Note - Text Progress Note Date: 08/30/24 Interval history: Patient was seen laying down resting in her bed this afternoon. She awakens ea sily, stands up, is directable and agreeable to speak with field underwriter, but also appears guarded again on assessment. She states she continues to feel tired and sleeping more than usual, and wants to know if her medication can be lowered. She does not appear oversedated or sleepy. At this time patient denies any suicidal or homicidal ideation, intent or plan. Patient denies any auditory, visual hallucinations. Patient denies any side effects from the medications, other than feeling tired, and has been compliant with meds. Mental Status Exam: General Appearance: Patient appears to be slightly older than stated age, dressed in neat casual attire, hair combed in pony tail Behavior: Patient is calm without any agitated behavior. Speech: Patient's speech is fluent and nonpressured. Mood/Affect: Mood is improving mildly, affect is congruent and constricted. Suicidality/Homicidality: Patient denies having any suicidal or homicidal ideation intent or plan. Perceptions: Patient denies any visual hallucinations and denies any auditory hallucinations Though content/process: There is some evidence of disorganization, paranoia; appears guarded Memory and concentration: AOX3, grossly intact for the purposes of this session Judgment and insight: Improving mildly Assessment/Plan: -Continue current diagnosis. -Patient continues to meet criteria for inpatient psychiatric admission for symptom stabilization and safety. -Medications: She is prescribed Zyprexa Zydis 5 mg daily in the morning and 10 mg QHS, and unfortunately Zyprexa Zydis does not come in a dose smaller than 5 mg. Since she has expressed her desire to not take medications yesterday I am hesitant to change her Zyprexa Zydis to regular Zyprexa, which can be given in a dose smaller than 5 mg, due to risk of cheeking medications. She does not appear oversedated on assessment. She is awake and alert so I will continue at the current dose of Zyprexa Zydis 5 mg daily in the morning and 10 mg QHS. -When necessary Ativan and Haldol for agitation/aggression. -Encouraged the patient to participate in milieu.
--- NOTE | 2024-08-31 13:44 | P.PN ---
Progress Note - Text Progress Note Date: 08/31/24 Interval History: Patient was seen wandering the hallways and was directable and agreeable to radha wylie with sba underwriter in the office. Patient did display predominant thought blocking, paranoia however the symptoms have lessened since previous encounter. She states speaking to her and that they are both interested in pursuing couples counseling as they have been for 30 years and both need to work on things. She was unable to state if the medications have been helpful or not, denying any adverse effects. Patient deferred on Saturday and this was discussed further today and patient acknowledged this. At this time patient denies any suicidal or homicidal ideations, intent or plan. Patient denies any auditory, visual hallucinations and denies any delusions. Patient denies any side effects from the medications and has been compliant with meds. Mental Status Exam: General Appearance: Patient appears to be stated age is alert, directable, and cooperative. Behavior: Patient is calmly seated without any agitated behavior. Speech: Patient's speech is fluent and nonpressured. Mood/Affect: Mood is improving mildly, affect is congruent and constricted. Suicidality/Homicidality: Patient denies having any suicidal or homicidal ideation intent or plan. Perceptions: Patient denies any visual hallucinations and denies any auditory hallucinations Though content/process: There is evidence of paranoia, slight disorganization Memory and concentration: AOX3, grossly intact for the purposes of this session Judgment and insight: Improving mildly Assessment Psychosis unspecified Nicotine dependence Plan: -Patient continues to meet criteria for inpatient psychiatric admission for symptom stabilization and safety. Patient has not signed adult voluntary form and medication consent and was placed in patient's chart. -Medications: Increase Zyprexa Zydis to 5 mg daily and 15 mg at bedtime for psychosis -When necessary Ativan and Haldol for agitation/aggression. -Labs: TSH is elevated however free T4 was WNL, medical referred patient to outpatient for monitoring of thyroid -NRT - nicotine patch -SW on board for discharge planning. Encouraged the patient to participate in milieu. Patient deferred on Saturday. Anticipate discharge home with tomorrow
[2024-08-31] MEDS: OLANZapine ODT 5 MG TAB PO SCH (21:08)
[2024-08-31 21:11] VITALS: RESP 18
[2024-09-01 08:55] VITALS: BP 99/66; PULSE 66; TEMP 97.7
--- NOTE | 2024-09-01 13:11 | P.DS ---
Providers Date of admission: 08/26/24 14:29 Expected date of discharge: 09/01/24 Attending physician: Shalini Quesada MD Consults: 08/26/24 14:42 Consult Physician Routine Consulting Provider: Shaylee Allen Consult Reason/Comments: H and P. Do you want consulting provider notified?: Yes Primary care physician: Stated None - Discharge Diagnosis(es) (1) Unspecified psychosis Current Visit: Yes Status: Acute Priority: High (2) Nicotine dependence Current Visit: Yes Status: Acute Priority: Low Hospital Course: Admission HPI: Admission note was completed by Dr. Heck " HPI: The patient presented to the hospital under CERT stating that she was hearing things and seeing things. While in the hospital she had noted that she had overdosed on medications. Interviewing the patient was limited due to the patient's psychotic presentation and thought blocking. She notes the intent was trying to kill herself. Tox screen was positive for alcohol blood alcohol was 0.041 and UDS was positive for opiates. The patient notes that she had been going through a slump. She notes that she wanted her to put cameras in the house because people were coming in. She notes that her in someway was controlling the content on the television set. She had difficulty explaining this. She notes that she is severely depressed and anxious. She notes that she has been sleeping too much and has no energy, appetite or concentration. She notes that she is scared and has been crying. She notes guilt and shame. She denies any homicidal thoughts and notes that there are firearms in the house and does not know whether they are locked or unlocked. " Hospital course: Upon admission to the unit patient was admitted involuntarily on a petition and certificate and a second certificate was completed and faxed to the courts. Patient ended up signing a deferral with the city attorney and agreeing to treatment.. Patient got along well with other patients on the unit and followed unit protocol. Patient was compliant with the medications and denied any side effects throughout hospital course. Patient was started on Zyprexa Zydis and this is increased to 5 mg daily and 15 mg at bedtime for psychosis. Patient spoke of her stressors and engaged in therapy both group and individual. Patient was also seen by medical team for history and physical exam. Throughout the course of the hospitalization patient gradually improved with regards to mood, anxiety, sleep and returned back to their baseline level of functioning. On the day of discharge patient denied any suicidal or homicidal ideations intent or plan denied any auditory or visual hallucinations. The patient denied any access to guns or weapons. Patient denied any paranoia and did not endorse any delusions. Patient does not have a significant history of substance abuse and was counseled on abstaining from all substances including alcohol and marijuana. Patient was also counseled on the medications and need for regular compliance and was encouraged to follow-up with their outpatient appointment for mental health and also for primary care. Prior to discharge a family meeting will be arranged by social insurance administrator to answer any questions and ensure safety upon discharge including making sure that guns/weapons are either removed from the home or locked away. Patient to be discharged home with and will follow-up with [facility] Mental status exam: General Appearance: Patient appears to be stated age is alert, pleasant, and cooperative. Patient is in no acute distress and has fair hygiene and grooming Behavior: Patient is calmly seated without any agitated behavior. Speech: Patient's speech is fluent and nonpressured. Mood/Affect: Patient reports their mood is "good", affect is congruent and more reactive Suicidality/Homicidality: Patient denies having any suicidal or homicidal ideation intent or plan. Perceptions: Patient denies any auditory or visual hallucinations. Though content/process: There is no evidence of any delusional thought content and thought process is linear, mild disorganization. More future oriented Memory and concentration: AOX3, grossly intact for the purposes of this session. Can spell "WORLD" backwards correctly. Judgment and insight: Fair Impression: Psychosis, unspecified Nicotine dependence Plan: -Continue with discharge today as patient has improved and stabilized psychiatrically and is not currently an imminent threat to themself and/or others. -Continue medications: Zyprexa Zydis 5 mg daily and 15 mg at bedtime -Patient was counseled on the need for medication compliance and appropriate follow-up at mental health and also primary care for medical issues. Patient verbalized understanding and agreed. -Social work to help coordinate patients discharge today arrange for and conduct family meeting to ensure safety upon discharge and answer any questions/concerns. also to ensure safe home environment that guns/weapons are either removed from the home or locked away. Social work also to arrange for patients follow up appointments with [facility] for psychiatric care along with follow up with primary care provider. -Patient counseled on abstaining from recreational drugs and marijuana and alcohol. Was informed/educated on the adverse effects on their physical and mental health. Patient verbally agreed and understood. -Patient was instructed to return to the hospital or seek immediate medical care if their psychiatric or medical symptoms do worsen or reoccur. Abnormal Labs 08/26/24 08/26/24 08/26/24 06:58 08:06 08:06 Hgb 15.3 H MCH 34.0 H MPV 9.3 L Calcium 10.6 H TSH Urine Opiates Screen Detected H 08/27/24 07:02 Hgb MCH MPV Calcium 10.8 H TSH 25.300 H Urine Opiates Screen Allergies Allergy/AdvReac Type Severity Reaction Status Date / Time No Known Allergies Allergy Verified 08/26/24 14:13 Vital Signs Temp 97.7 F 09/01/24 08:55 Pulse 66 09/01/24 08:55 Resp 18 08/31/24 21:00 BP 99/66 09/01/24 08:55 Pulse Ox 97 09/01/24 08:55 FiO2 Patient Condition at Discharge: Stable Plan - Discharge Summary Discharge Rx Participant: No New Discharge Prescriptions: New OLANZapine ODT [ZyPREXA Zydis] 5 mg PO DAILY 30 Days #30 tab OLANZapine ODT [ZyPREXA Zydis] 15 mg PO HS 30 Days #90 tab Discontinued Nicotine 21Mg/24Hr Patch [Habitrol] 1 patch TRANSDERM DAILY Discharge Medication List OLANZapine ODT [ZyPREXA Zydis] 5 mg PO DAILY 30 Days #30 tab 09/01/24 [Rx] OLANZapine ODT [ZyPREXA Zydis] 15 mg PO HS 30 Days #90 tab 09/01/24 [Rx] Follow up Appointment(s)/Referral(s): [facility] [place] [Outside] - 09/07/24 9:00 am (with Toshia) [facility] [NON-STAFF] - 1 Week Patient Instructions/Handouts: How to Stop Smoking (DC), Psychotic Disorder (DC) Activity/Diet/Wound Care/Special Instructions: [facility] Discharge Info Avoid the use of street drugs and alcohol. Take all medications as prescribed. When you are in need of refills on your medications, please contact your outpatient medical provider and/or outpatient psychiatrist. Please go to your scheduled outpatient appointments for aftercare treatment. If symptoms return or become worse, call the crisis line at or and/or visit the nearest emergency room for assistance. [place] [facility] Lifeline - call or text 298. Follow up with PCP to have PFT and chest X-Ray done as outpatient. Discharge Disposition: HOME SELF-CARE
== END 2024-09-01 14:45 | disposition home or self-care (01) | DRG 885 ==
LOC: EC 06:51 → 3MHU 14:29
PROVIDERS: ADMIT Psychiatry & Neurology Psychiatry; ATTEND Psychiatry & Neurology Psychiatry
DX: F29 Unspecified psychosis not due to a substance or known physiological condition (principal); E03.8 Other specified hypothyroidism; G40.909 Epilepsy, unspecified, not intractable, without status epilepticus; F32.A Depression, unspecified; T50.902A Poisoning by unspecified drugs, medicaments and biological substances, intentional self-harm, initial encounter; E83.52 Hypercalcemia; F17.200 Nicotine dependence, unspecified, uncomplicated; F41.9 Anxiety disorder, unspecified; K59.00 Constipation, unspecified
CPT/HCPCS: 36415; 80053; 80143; 80179; 80306; 80320; 81025; 82306; 83970; 84439; 84443; 85025; 87636; 93005; 99285